=== PATIENT | male | born 1950 | race Caucasian/White ===

== ENCOUNTER 2021-02-12 19:02 | Emergency (ER) | payer OTHER ==
[2021-02-12] MEDS ORDERED: methylPREDNISolone SOD SUCCI 125 MG/2 ML VIAL IV STA (19:21)
[2021-02-12] MEDS ORDERED: SODIUM CHLORIDE 0.9% 1,000 ML IV STA (19:21)
[2021-02-12] MEDS ORDERED: SODIUM CHLORIDE 0.9% 500 ML 500 ML IV STA (19:21)
[2021-02-12] MEDS ORDERED: IPRATROPIUM-ALBUTEROL 3 ML NEB INHALATION STA (19:21)
[2021-02-12 19:58] LABS: Basophils % (A) 1 %; Eosinophils # (A) 0.1 k/uL (0-0.7); Eosinophils % (A) 2 %; HCT 45.1 % (39.0-53.0); HGB 14.9 gm/dL (13.0-17.5); Lymphocytes # (A) 1.2 k/uL (1.0-4.8); Lymphocytes % (A) 28 %; MCH 37.9 pg (25.0-35.0); MCHC 33.1 g/dL (31.0-37.0); MCV 114.6 fL (80.0-100.0); Macrocytosis Marked; Mean Platelet Volume 7.6; Monocytes # (A) 0.2 k/uL (0-1.0); Monocytes % (A) 4 %; Neutrophils # (A) 2.5 k/uL (1.3-7.7); Neutrophils % (A) 61 %; Platelet Count 148 k/uL (150-450); RBC 3.94 m/uL (4.30-5.90); RDW 12.8 % (11.5-15.5); WBC 4.1 k/uL (3.8-10.6)
[2021-02-12 19:59] LABS: ALT 21 U/L (4-49); AST 40 U/L (17-59); African American GFR (CKD) >90 (>60 ml/min/1.73 sqM); Albumin 3.6 g/dL (3.5-5.0); Alkaline Phosphatase 53 U/L (38-126); Anion Gap 12 mmol/L; Blood Urea Nitrogen 7 mg/dL (9-20); Calcium 9.1 mg/dL (8.4-10.2); Carbon Dioxide 17 mmol/L (22-30); Chloride 107 mmol/L (98-107); Glucose 256 mg/dL (74-99); INR 0.9 (<1.2); Non-African American GFR(CKD) >90 (>60 ml/min/1.73 sqM); Partial Thromboplastin Time 24.4 sec (22.0-30.0); Potassium 3.6 mmol/L (3.5-5.1); Prothrombin Time 9.6 sec (9.0-12.0); Sodium 136 mmol/L (137-145); Total Bilirubin 0.2 mg/dL (0.2-1.3); Total Protein 6.2 g/dL (6.3-8.2)
[2021-02-12] MEDS ORDERED: KETOROLAC 15 MG/ML 1 ML VIAL IVP STA ×2 (20:19→20:20)
[2021-02-12] MEDS ORDERED: MORPHINE SULFATE 2 MG/ML SYRINGE IVP STA ×2 (20:19→20:20)
--- NOTE | 2021-02-12 20:31 | XR ---
EXAMINATION TYPE: XR chest 2V DATE OF EXAM: 02/12/2021 COMPARISON: NONE HISTORY: Short of breath TECHNIQUE: 2 views FINDINGS: Heart is normal. Lungs are clear of infiltrate. There is mild flattening of the diaphragm. Thoracic aorta is atheromatous. There are chest leads. Bony thorax is intact. IMPRESSION: There is evidence of COPD. No acute lung disease.
[2021-02-12 20:55] VITALS: RESP 18
--- NOTE | 2021-02-12 22:04 | ED ---
SOB HPI - General Chief Complaint: Shortness of Breath Stated Complaint: SOB Time Seen by Provider: 02/12/21 19:11 Source: patient, family Mode of arrival: wheelchair Limitations: no limitations - History of Present Illness Initial Comments: This 70-year-old male presents with a complaint of shortness breath and cough. He states that he has had this for approximately 5 days. It seemed to start off with what he thinks is a sinusitis. He had some dental work done with 17th extracted. He thinks that he developed a sinusitis from his right upper molar extraction. This has not healed completely. He complains of some right facial pain and nasal congestion. He has been coughing up a yellowish productive type sputum. He denies any fevers or chills. He does have underlying COPD but is not on oxygen. He still does utilize tobacco. He gets most of his care through the [facility] in [place]. He does not utilize a nebulizer at home but his does have a nebulizer that he could use. He denies any chest pain. There is no leg pain or swelling. No history of DVT or PE. - Related Data Home Medications Medication Instructions Recorded Confirmed Aspirin EC [Ecotrin Low Dose] 81 mg PO DAILY 02/12/21 02/12/21 Diltiazem HCl [Diltiazem HCl 24Hr 240 mg PO DAILY 02/12/21 02/12/21 ER (LA)] Melatonin Max 60mg 60 mg PO HS PRN 02/12/21 02/12/21 Prosvent Ultra 1 cap PO DAILY 02/12/21 02/12/21 Terazosin HCl 20 mg PO HS 02/12/21 02/12/21 Venlafaxine HCl ER [Effexor Xr] 75 mg PO DAILY 02/12/21 02/12/21 busPIRone HCl [Buspar] 20 mg PO BID 02/12/21 02/12/21 diphenhydrAMINE [Benadryl] 25 mg PO BID 02/12/21 02/12/21 lisinopriL [Zestril] 5 mg PO DAILY 02/12/21 02/12/21 traZODone HCL 100 mg PO HS PRN 02/12/21 02/12/21 Previous Rx's Medication Instructions Recorded Ipratropium-Albuterol Nebulize 1 neb INHALATION Q4HR #60 neb 02/12/21 [Duoneb 0.5 mg-3 mg/3 ml Soln] Levofloxacin [Levaquin] 750 mg PO DAILY 7 Days #1 tab 02/12/21 predniSONE [Deltasone] 20 mg PO BID #14 tab 02/12/21 Allergies Allergy/AdvReac Type Severity Reaction Status Date / Time No Known Allergies Allergy Verified 02/12/21 20:31 Review of Systems ROS Statement: Those systems with pertinent positive or pertinent negative responses have been documented in the HPI. ROS Other: All systems not noted in ROS Statement are negative. Past Medical History Past Medical History: COPD, Hyperlipidemia, Hypertension Past Surgical History: Orthopedic Surgery Additional Past Surgical History / Comment(s): gastric bypass 2009 Past Psychological History: No Psychological Hx Reported Smoking Status: Current every day smoker Past Alcohol Use History: Daily Past Drug Use History: Marijuana General Exam - General Exam Comments Initial Comments: GENERAL: The patient is well nourished and well hydrated. VITAL SIGNS: Heart rate, blood pressure, respiratory rate reviewed as recorded in nurse's notes. EYES: Pupils are round and reactive. Extraocular movements are intact. No conjunctival / lid redness or swelling. ENT: No external evidence of injury, swelling, or ecchymosis. Airway is patent. Throat is clear. There is tenderness noted over the right maxillary sinus. Oral exam shows healing cavity from dental extraction noted to his right and left upper molars. NECK: Nontender. No swelling or evidence of injury. No subcutaneous emphysema. Trachea is midline. No thyroid mass. HEART: Regular rate and rhythm. Good peripheral pulses. LUNGS/CHEST: Diffuse wheezing noted bilaterally. No ecchymosis, subcutaneous emphysema, or tenderness. ABDOMEN: Abdomen soft without tenderness. No palpable masses or organomegaly. No peritoneal signs. No abdominal wall swelling or ecchymosis. EXTREMITIES: No extremity tenderness. Normal muscle tone and function. No thoracolumbar tenderness. NEUROLOGIC: Sensation is grossly intact. Cranial nerve exam reveals face is symmetrical, tongue is midline, speech is clear. SKIN: No abrasions or ecchymosis is noted. No induration or masses noted. PSYCHIATRIC: Alert and oriented. Appropriate behavior and judgment. Limitations: no limitations Course Vital Signs 02/12/21 02/12/21 02/12/21 19:04 19:45 19:46 Temperature 98.1 F Pulse Rate 96 79 Respiratory 22 18 18 Rate Blood Pressure 109/61 102/63 O2 Sat by Pulse 94 L 96 Oximetry 02/12/21 02/12/21 02/12/21 20:24 20:34 20:50 Temperature Pulse Rate 76 70 73 Respiratory 18 20 18 Rate Blood Pressure 125/71 O2 Sat by Pulse 96 Oximetry Medical Decision Making - Medical Decision Making Patient was seen and examined. All diagnostics were reviewed. The patient receives 2 DuoNeb breathing treatments and voices significant treatment and his symptomatology. He also received Solu-Medrol 125 modems IV and Rocephin 1 g IV. His EKG shows a normal sinus rhythm at a rate of 88. There is no acute ST-T wave changes identified. The [place] intervals 144, QS duration is 78, and the QTC intervals 471. The laboratory comes back showing hyperglycemia with glucose at 256 and a decrease CO2 of 17 consistent with likely dehydration. His coronavirus test is negative and he does relate that he already has been immuniz ed for this as well. Overall, it is felt as though he likely does have a sinusitis. His chest x-ray does not show any evidence of pneumonia but does show signs of COPD. He also likely has a degree of bronchitis and COPD exacerbation. relates that his oxygen was down to 89% at home. It is felt as though he benefit from admission to the hospital. The patient refuses admission. He understands that there is some risk of not being hospitalized but is willing to take this risk. He would like to follow-up at the [facility] in [place] tomorrow instead. He can utilize his 's nebulizer machine this evening. His oxygenation on recheck is approximately 93- 94% on 2 L. It is felt as though he benefit from steroids, breathing treatments, and antibiotics. He is agreeable with this plan. Return parameters are discussed. He does relate that he would return throughout the evening if his symptoms worsen. In addition, he understands that his blood sugar is elevated and that this should be monitored. He apparently ate dinner and had a doughnut shortly prior to arrival and this likely could be causing the hyperglycemia and follow-up with primary care is recommended. - Lab Data Result diagrams: 02/12/21 19:37 02/12/21 19:37 Lab Results 02/12/21 02/12/21 02/12/21 Range/Units 19:37 19:37 19:37 WBC 4.1 (3.8-10.6) k/uL RBC 3.94 L (4.30-5.90) m/uL Hgb 14.9 (13.0-17.5) gm/dL Hct 45.1 (39.0-53.0) % MCV 114.6 H (80.0-100.0) fL MCH 37.9 H (25.0-35.0) pg MCHC 33.1 (31.0-37.0) g/dL RDW 12.8 (11.5-15.5) % Plt Count 148 L (150-450) k/uL MPV 7.6 Neutrophils % 61 % Lymphocytes % 28 % Monocytes % 4 % Eosinophils % 2 % Basophils % 1 % Neutrophils # 2.5 (1.3-7.7) k/uL Lymphocytes # 1.2 (1.0-4.8) k/uL Monocytes # 0.2 (0-1.0) k/uL Eosinophils # 0.1 (0-0.7) k/uL Basophils # 0.0 (0-0.2) k/uL Macrocytosis Marked A PT 9.6 (9.0-12.0) sec INR 0.9 (<1.2) APTT 24.4 (22.0-30.0) sec Sodium 136 L (137-145) mmol/L Potassium 3.6 (3.5-5.1) mmol/L Chloride 107 (98-107) mmol/L Carbon Dioxide 17 L (22-30) mmol/L Anion Gap 12 mmol/L BUN 7 L (9-20) mg/dL Creatinine 0.75 (0.66-1.25) mg/dL Est GFR (CKD-EPI)AfAm >90 (>60 ml/min/1.73 sqM) Est GFR (CKD-EPI)NonAf >90 (>60 ml/min/1.73 sqM) Glucose 256 H (74-99) mg/dL Calcium 9.1 (8.4-10.2) mg/dL Total Bilirubin 0.2 (0.2-1.3) mg/dL AST 40 (17-59) U/L ALT 21 (4-49) U/L Alkaline Phosphatase 53 (38-126) U/L Troponin I (0.000-0.034) ng/mL NT-Pro-B Natriuret Pep pg/mL Total Protein 6.2 L (6.3-8.2) g/dL Albumin 3.6 (3.5-5.0) g/dL Coronavirus (PCR) (Not Detectd) 02/12/21 02/12/21 02/12/21 Range/Units 19:37 19:37 19:37 WBC (3.8-10.6) k/uL RBC (4.30-5.90) m/uL Hgb (13.0-17.5) gm/dL Hct (39.0-53.0) % MCV (80.0-100.0) fL MCH (25.0-35.0) pg MCHC (31.0-37.0) g/dL RDW (11.5-15.5) % Plt Count (150-450) k/uL MPV Neutrophils % % Lymphocytes % % Monocytes % % Eosinophils % % Basophils % % Neutrophils # (1.3-7.7) k/uL Lymphocytes # (1.0-4.8) k/uL Monocytes # (0-1.0) k/uL Eosinophils # (0-0.7) k/uL Basophils # (0-0.2) k/uL Macrocytosis PT (9.0-12.0) sec INR (<1.2) APTT (22.0-30.0) sec Sodium (137-145) mmol/L Potassium (3.5-5.1) mmol/L Chloride (98-107) mmol/L Carbon Dioxide (22-30) mmol/L Anion Gap mmol/L BUN (9-20) mg/dL Creatinine (0.66-1.25) mg/dL Est GFR (CKD-EPI)AfAm (>60 ml/min/1.73 sqM) Est GFR (CKD-EPI)NonAf (>60 ml/min/1.73 sqM) Glucose (74-99) mg/dL Calcium (8.4-10.2) mg/dL Total Bilirubin (0.2-1.3) mg/dL AST (17-59) U/L ALT (4-49) U/L Alkaline Phosphatase (38-126) U/L Troponin I <0.012 (0.000-0.034) ng/mL NT-Pro-B Natriuret Pep 91 pg/mL Total Protein (6.3-8.2) g/dL Albumin (3.5-5.0) g/dL Coronavirus (PCR) Not Detected (Not Detectd) Disposition Clinical Impression: COPD exacerbation, Bronchitis, Sinusitis, Dehydration, Tobacco abuse, Hyperglycemia, Bronchospasm Disposition: HOME SELF-CARE Condition: Fair Instructions (If sedation given, give patient instructions): Acute Bronchitis (ED), Sinusitis (ED), COPD (Chronic Obstructive Pulmonary Disease) (DC), How to Stop Smoking (ED) Additional Instructions: Review also may benefit from utilizing Mucinex DM or similar [id number] medications. Prescriptions: predniSONE [Deltasone] 20 mg PO BID #14 tab Ipratropium-Albuterol Nebulize [Duoneb 0.5 mg-3 mg/3 ml Soln] 1 neb INHALATION Q4HR #60 neb Levofloxacin [Levaquin] 750 mg PO DAILY 7 Days #1 tab Is patient prescribed a controlled substance at d/c from ED?: No Referrals: Nonstaff,Physician [Primary Care Provider] - 1-2 days Time of Disposition: 22:04
[2021-02-12 22:57] VITALS: BP 119/54; PULSE 78; TEMP 98.4
== END 2021-02-12 22:54 | disposition home or self-care (01) ==
LOC: EC 19:02
DX: J44.1 Chronic obstructive pulmonary disease with (acute) exacerbation (principal); J40 Bronchitis, not specified as acute or chronic; J32.9 Chronic sinusitis, unspecified; E86.0 Dehydration; R73.9 Hyperglycemia, unspecified; I10 Essential (primary) hypertension; E78.5 Hyperlipidemia, unspecified; F17.200 Nicotine dependence, unspecified, uncomplicated; F12.90 Cannabis use, unspecified, uncomplicated; Z79.82 Long term (current) use of aspirin; Z79.52 Long term (current) use of systemic steroids; Z79.899 Other long term (current) drug therapy; Z98.84 Bariatric surgery status
CPT/HCPCS: 36415; 94640; 93005; 83880; 80053; 84484; 85025; 85610; 85730; 87040; 87635; 71046; 96365; 96375 ×2; 96361 ×3; 99284; J2930; J0696; J2270

== ENCOUNTER 2024-02-19 13:34 | Emergency (ER) | payer OTHER ==
[2024-02-19 13:46] VITALS: TEMP 97.4
[2024-02-19] MEDS ORDERED: RX INFO: IV CONTRAST WAS GIVEN 1 EACH MISC MISCELLANE PRN (14:03)
[2024-02-19 14:31] LABS: Basophils % (A) 1 %; Eosinophils # (A) 0.2 k/uL (0-0.7); Eosinophils % (A) 3 %; HCT 42.8 % (39.0-53.0); HGB 14.1 gm/dL (13.0-17.5); Lymphocytes # (A) 1.2 k/uL (1.0-4.8); Lymphocytes % (A) 21 %; MCH 31.3 pg (25.0-35.0); MCHC 32.9 g/dL (31.0-37.0); MCV 95.3 fL (80.0-100.0); Mean Platelet Volume 7.8; Monocytes # (A) 0.3 k/uL (0-1.0); Monocytes % (A) 5 %; Neutrophils # (A) 4.1 k/uL (1.3-7.7); Neutrophils % (A) 70 %; Platelet Count 178 k/uL (150-450); RBC 4.49 m/uL (4.30-5.90); RDW 12.7 % (11.5-15.5); WBC 5.9 k/uL (3.8-10.6)
[2024-02-19 14:39] LABS: ALT 14 U/L (4-49); African American GFR (CKD) >90 (>60 ml/min/1.73 sqM); Anion Gap 5 mmol/L; Blood Urea Nitrogen 14 mg/dL (9-20); Calcium 8.6 mg/dL (8.4-10.2); Carbon Dioxide 23 mmol/L (22-30); Chloride 106 mmol/L (98-107); Glucose 73 mg/dL (74-99); Non-African American GFR(CKD) >90 (>60 ml/min/1.73 sqM); Sodium 134 mmol/L (137-145); Total Bilirubin 0.6 mg/dL (0.2-1.3)
[2024-02-19 14:54] LABS: Potassium 4.8 mmol/L (3.5-5.1)
--- NOTE | 2024-02-19 14:54 | ED ---
General Adult HPI - General Chief complaint: Abdominal Pain Stated complaint: Needs CT/Broken Ribs Time Seen by Provider: 02/19/24 14:52 Source: patient Mode of arrival: ambulatory Limitations: no limitations - History of Present Illness Initial comments: Patient is a 73-year-old male past medical history of prior gastric bypass, presenting today for right rib pain. Patient states on Thursday he was camping when he tried to step out of his tent and tripped, falling on his right side onto the hard ground. Over the last 4 days he has had worsening right-sided rib pain and pain with inspiration. Patient states the pain is the worst when he tries to lay down so he has been sleeping in a recliner for only about 2 hours at a time. He has been taking Tylenol at home without relief, last dose was yesterday. Cannot take NSAIDs due to prior gastric bypass. Patient denies fever, cough, hemoptysis, chest pain, back pain, neck pain, vomiting. Endorses alternating diarrhea and constipation though states this is chronic since his abdominal surgery. Patient does feel like the right side of his abdomen is "harder" than the left. No hematochezia or melena. Patient does not take blood thinners. He was seen in urgent care prior to arrival and was told he had 4 broken ribs and fluid on his lung so was sent to the emergency department for chest CT to evaluate for hemothorax versus pleural effusion. Patient denies other injury, did not hit his head or neck, states that his right shoulder and right arm feel fine and he has no pain there no hip pain, no bruising. - Related Data Home Medications Medication Instructions Recorded Confirmed Aspirin EC [Ecotrin Low Dose] 81 mg PO DAILY 02/12/21 02/12/21 Melatonin Max 60mg 60 mg PO HS PRN 02/12/21 02/12/21 Prosvent Ultra 1 cap PO DAILY 02/12/21 02/12/21 Terazosin HCl 20 mg PO HS 02/12/21 02/12/21 Venlafaxine HCl ER [Effexor Xr] 75 mg PO DAILY 02/12/21 02/12/21 busPIRone HCl [Buspar] 20 mg PO BID 02/12/21 02/12/21 dilTIAZem HCL [Diltiazem HCl 24Hr 240 mg PO DAILY 02/12/21 02/12/21 ER ([place])] diphenhydrAMINE [Benadryl] 25 mg PO BID 02/12/21 02/12/21 lisinopriL [Zestril] 5 mg PO DAILY 02/12/21 02/12/21 traZODone HCL 100 mg PO HS PRN 02/12/21 02/12/21 Previous Rx's Medication Instructions Recorded Ipratropium-Albuterol Nebulize 1 neb INHALATION Q4HR #60 neb 02/12/21 [Duoneb 0.5 mg-3 mg/3 ml Soln] levoFLOXacin [Levaquin] 750 mg PO DAILY 7 Days #1 tab 02/12/21 predniSONE [Deltasone] 20 mg PO BID #14 tab 02/12/21 Acetaminophen-Codeine 300-30mg 1 tab PO Q6H PRN 3 Days #12 tablet 02/19/24 [Tylenol w/codeine #3] Allergies Allergy/AdvReac Type Severity Reaction Status Date / Time No Known Allergies Allergy Verified 02/19/24 13:46 Review of Systems ROS Statement: Those systems with pertinent positive or pertinent negative responses have been documented in the HPI. ROS Other: All systems not noted in ROS Statement are negative. Past Medical History Past Medical History: COPD, Hyperlipidemia, Hypertension Past Surgical History: Orthopedic Surgery Additional Past Surgical History / Comment(s): gastric bypass 2009 Past Psychological History: No Psychological Hx Reported Smoking Status: Current every day smoker Past Alcohol Use History: Daily Past Drug Use History: Marijuana General Exam - General Exam Comments Initial Comments: PE: CONSTITUTIONAL: no apparent distress, well appearing, sitting upright, exam li mited as patient is too painful to lie on the stretcher SKIN: warm, dry, no jaundice, hives or petechiae, no bruising abrasions or lacerations EYES: pupils are equally round, extraocular movements intact without nystagmus, clear conjunctiva, non-icteric sclera HENT: normocephalic, atraumatic, moist mucus membranes, oropharynx clear without exudates NECK: Nontender and supple with no nuchal rigidity, no lymphadenopathy, full range of motion PULMONARY: Rhonchi and rales in the lower right and midlung field, lung sounds present throughout the entire right lung field, scant wheezes left midlung fi eld, no accessory muscle use, no stridor, decreased excursion secondary to pain with inspiration CARDIOVASCULAR: regular rate, rhythm, normal S1 and S2. No appreciated murmurs. Strong radial pulses with intact distal perfusion GASTROINTESTINAL: soft, minimal right upper quadrant palpation, mildly di stended, no palpable masses, no rebound or guarding, negative McBurney's point, no hepatosplenomegaly LYMPHATICS: no edema in lower extremities MUSCULOSKELETAL: Extremities are nontender to palpation and have no gross deformity, no edema, redness, or swelling NEUROLOGIC: _a/o x 3, GCS 15, normal mentation and speech. Moves all extremities x 4 without motor or sensory deficit PSYCHIATRIC: _normal mood and affect, thought process is clear and linear Limitations: no limitations Course Vital Signs 02/19/24 02/19/24 02/19/24 13:42 14:51 17:40 Temperature 97.4 F L Pulse Rate 70 71 56 L Respiratory 18 16 14 Rate Blood Pressure 119/74 126/82 142/85 O2 Sat by Pulse 95 94 L Oximetry 02/19/24 18:39 Temperature Pulse Rate 62 Respiratory 14 Rate Blood Pressure 150/83 O2 Sat by Pulse 97 Oximetry - Reevaluation(s) Reevaluation #1: CT chest abdomen pelvis reviewed, read by radiologist as moderate emphysematous changes, small right pleural effusion minimal bibasilar atelectasis, 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 Rate 64 bpm. Normal intervals. Normal axis. No ST elevations or depressions. Compared to EKG performed on 02/12/2021, no si gnificant changes from prior. No arrhythmia Medical Decision Making - Medical Decision Making Was pt. sent in by a medical professional or institution (, PA, LAST TRIMMER, urgent care, hospital, or [facility]...) When possible be specific @ -Patient sent in by local urgent care Did you speak to anyone other than the patient for history (EMS, parent, family, police, friend...)? What history was obtained from this source @ -Patient's assisted in providing history Did you review nursing and triage notes (agree or disagree)? Why? @ -[I reviewed and agree with nursing and triage notes] Triage note reviewed, patient chief complaint for broken ribs, reports fluid on lung center from urgent care for CT, fell last Thursday and reports shortness of breath signs on arrival showed temp 97.4 oral, pulse 70 bpm, heart respiratory rate 18, blood pressure 118/74 pulse ox 95% on room air Were old charts reviewed (outside hosp., previous admission, EMS record, old EKG, old radiological studies, urgent care reports/EKG's, [facility] records)? Report findings @ -[No old charts were reviewed]-no old charts to review Differential Diagnosis (chest pain, altered mental status, abdominal pain women, abdominal pain men, vaginal bleeding, weakness, fever, dyspnea, syncope, headache, dizziness, GI bleed, back pain, seizure, CVA, palpatations, mental health, musculoskeletal)? @ -Differential diagnosis remains broad at this point however top considerations include rib fractures, hemopneumothorax, pleural effusion, pneumothorax, pneumonia, pulmonary contusion EKG interpreted by me (3pts min.). @ -[As above] X-rays interpreted by me (1pt min.). @ -[None done] CT interpreted by me (1pt min.). @ -Please see hospital course U/S interpreted by me (1pt. min.). @ -[None done] What testing was considered but not performed or refused? (CT, X-rays, U/S, labs)? Why? @ -[None] What meds were considered but not given or refused? Why? @ -Considered increasing pain control to Dilaudid however pain is controlled with morphine Did you discuss the management of the patient with other professionals (professionals i.e. , PA, LAST TRIMMER, lab, RT, psych nurse, child welfare social worker, director of community life, teacher, chief data officer, comp field case manager)? Give summary @ -[No] Was smoking cessation discussed for >3mins.? @ -Yes Was critical care preformed (if so, how long)? @ -[No] Were there social determinants of health that impacted care today? How? (Homelessness, low income, unemployed, alcoholism, drug addiction, transportation, low edu. Level, literacy, decrease access to med. care, [facility], rehab)? @ -[No] Was there de-escalation of care discussed even if they declined (Discuss DNR or withdrawal of care, Hospice)? DNR status @ -[No] What co-morbidities impacted this encounter? (DM, HTN, Smoking, COPD, CAD, Cancer, CVA, ARF, Chemo, Hep., AIDS, mental health diagnosis, sleep apnea, morbid obesity)? @ -History of COPD, hypertension Was patient admitted / discharged? Hospital course, mention meds given and route, prescriptions, significant lab abnormalities, going to OR and other pertinent info. @ -[hospital course] Patient is a 73-year-old gentleman, past medical history, current cigarette smoker, hypertension, prior gastric bypass presented today for right rib pain after trip and fall approximately 1 week ago, noted to have 4 rib fractures and "fluid on his lung" at local urgent care so sent to the emergency department. Patient O2 sat wnl on room air. No tachycardia or tachypnea. Plan for CT chest abdomen pelvis to assess for the above diagnoses listed differential and given mild right upper quadrant pain to palpation, to ensure no traumatic intra-abdominal injury, troponin, EKG to ensure no signs of blunt cardiac injury, CBC, CMP already ordered, will obtain urinalysis. Morphine, Zofran and lidocaine patch to be given for pain control. Of note blood glucose on arrival 73, will be keeping patient n.p.o. until CT results, D5 LR bolus ordered. On reassessment patient's pain is controlled Labs reviewed. Grossly within normal limits. Abnormal values not concerning for acute pathology related to presenting complaint. Updated patient to CT findings including large renal cysts and emphasized the importance of close follow-up with PCP and nephrology regarding these findings and possible need for MRI . Requested RN provide patient w/ an incentive spirometer. Instructed patient to use this 4 times daily to assist with prevention of the development of pneumonia given history of COPD and current rib fractures. Patient was discharged with p ain control, prescription for Tylenol 3. Additionally discussed use of lidocaine patches for further pain. Patient comfortable and agreeable with discharge at this point. In my medical judgment there is currently no evidence of an immediate life- threatening or surgical condition. Discharge is therefore indicated at this time. [Discharge treatment instructions, follow up instructions, and appropriate emergency department return precautions were discussed with the patient and/or medical decision maker. Patient and/or medical decision maker expressed understanding of and agreed with the treatment plan, follow up instructions, and emergency department return precaution. All patient's and/or medical decision maker's questions were answered.] [The patient was advised that a small risk still exists that a serious condition could develop and was therefore instructed to return to the ED for any changes in symptoms, persistent symptoms, inability to obtain proper follow-up or for any further concerns. Patient received verbal and written instructions for this condition.] Drug Therapy requiring intensive monitoring for toxicity (Heparin, Nitro, Insulin, Cardizem)? @ -[No] Were any procedures done? @ -[No] Diagnosis/symptom? @ -Rib fractures, pleural effusion, fall, renal cysts Acute, or Chronic, or Acute on Chronic? @ -Acute Uncomplicated (without systemic symptoms) or Complicated (systemic symptoms)? @ -Complicated Side effects of treatment? @ -[No] Exacerbation, Progression, or Severe Exacerbation? @ -[No] - Lab Data Result diagrams: 02/19/24 14:20 02/19/24 14:20 Lab Results 02/19/24 02/19/24 02/19/24 Range/Units 14:20 14:20 14:20 WBC 5.9 (3.8-10.6) k/uL RBC 4.49 (4.30-5.90) m/uL Hgb 14.1 (13.0-17.5) gm/dL Hct 42.8 (39.0-53.0) % MCV 95.3 (80.0-100.0) fL MCH 31.3 (25.0-35.0) pg MCHC 32.9 (31.0-37.0) g/dL RDW 12.7 (11.5-15.5) % Plt Count 178 (150-450) k/uL MPV 7.8 Neutrophils % 70 % Lymphocytes % 21 % Monocytes % 5 % Eosinophils % 3 % Basophils % 1 % Neutrophils # 4.1 (1.3-7.7) k/uL Lymphocytes # 1.2 (1.0-4.8) k/uL Monocytes # 0.3 (0-1.0) k/uL Eosinophils # 0.2 (0-0.7) k/uL Basophils # 0.0 (0-0.2) k/uL APTT 25.6 (22.0-30.0) sec Sodium 134 L (137-145) mmol/L Potassium 4.8 (3.5-5.1) mmol/L Chloride 106 (98-107) mmol/L Carbon Dioxide 23 (22-30) mmol/L Anion Gap 5 mmol/L BUN 14 (9-20) mg/dL Creatinine 0.71 (0.66-1.25) mg/dL Est GFR (CKD-EPI)AfAm >90 (>60 ml/min/1.73 sqM) Est GFR (CKD-EPI)NonAf >90 (>60 ml/min/1.73 sqM) Glucose 73 L (74-99) mg/dL POC Glucose (mg/dL) (70-110) mg/dL POC Glu Pattern Hand ID Calcium 8.6 (8.4-10.2) mg/dL Total Bilirubin 0.6 (0.2-1.3) mg/dL AST 25 (17-59) U/L ALT 14 (4-49) U/L Alkaline Phosphatase 41 (38-126) U/L Troponin I (0.000-0.034) ng/mL NT-Pro-B Natriuret Pep pg/mL Total Protein 6.4 (6.3-8.2) g/dL Albumin 3.7 (3.5-5.0) g/dL Urine Color Urine Appearance (Clear) Urine pH (5.0-8.0) Ur Specific [place] (1.001-1.035) Urine Protein (Negative) Urine Glucose (UA) (Negative) Urine Ketones (Negative) Urine Blood (Negative) Urine Nitrite (Negative) Urine Bilirubin (Negative) Urine Urobilinogen (<2.0) mg/dL Ur Leukocyte Esterase (Negative) 02/19/24 02/19/24 02/19/24 Range/Units 14:20 16:34 17:35 WBC (3.8-10.6) k/uL RBC (4.30-5.90) m/uL Hgb (13.0-17.5) gm/dL Hct (39.0-53.0) % MCV (80.0-100.0) fL MCH (25.0-35.0) pg MCHC (31.0-37.0) g/dL RDW (11.5-15.5) % Plt Count (150-450) k/uL MPV Neutrophils % % Lymphocytes % % Monocytes % % Eosinophils % % Basophils % % Neutrophils # (1.3-7.7) k/uL Lymphocytes # (1.0-4.8) k/uL Monocytes # (0-1.0) k/uL Eosinophils # (0-0.7) k/uL Basophils # (0-0.2) k/uL APTT (22.0-30.0) sec Sodium (137-145) mmol/L Potassium (3.5-5.1) mmol/L Chloride (98-107) mmol/L Carbon Dioxide (22-30) mmol/L Anion Gap mmol/L BUN (9-20) mg/dL Creatinine (0.66-1.25) mg/dL Est GFR (CKD-EPI)AfAm (>60 ml/min/1.73 sqM) Est GFR (CKD-EPI)NonAf (>60 ml/min/1.73 sqM) Glucose (74-99) mg/dL POC Glucose (mg/dL) (70-110) mg/dL POC Glu Pattern Hand ID Calcium (8.4-10.2) mg/dL Total Bilirubin (0.2-1.3) mg/dL AST (17-59) U/L ALT (4-49) U/L Alkaline Phosphatase (38-126) U/L Troponin I <0.012 (0.000-0.034) ng/mL NT-Pro-B Natriuret Pep 349 pg/mL Total Protein (6.3-8.2) g/dL Albumin (3.5-5.0) g/dL Urine Color Yellow Urine Appearance Clear (Clear) Urine pH 6.0 (5.0-8.0) Ur Specific [place] 1.020 (1.001-1.035) Urine Protein Negative (Negative) Urine Glucose (UA) Negative (Negative) Urine Ketones Negative (Negative) Urine Blood Negative (Negative) Urine Nitrite Negative (Negative) Urine Bilirubin Negative (Negative) Urine Urobilinogen <2.0 (<2.0) mg/dL Ur Leukocyte Esterase Negative (Negative) 02/19/24 Range/Units 18:43 WBC (3.8-10.6) k/uL RBC (4.30-5.90) m/uL Hgb (13.0-17.5) gm/dL Hct (39.0-53.0) % MCV (80.0-100.0) fL MCH (25.0-35.0) pg MCHC (31.0-37.0) g/dL RDW (11.5-15.5) % Plt Count (150-450) k/uL MPV Neutrophils % % Lymphocytes % % Monocytes % % Eosinophils % % Basophils % % Neutrophils # (1.3-7.7) k/uL Lymphocytes # (1.0-4.8) k/uL Monocytes # (0-1.0) k/uL Eosinophils # (0-0.7) k/uL Basophils # (0-0.2) k/uL APTT (22.0-30.0) sec Sodium (137-145) mmol/L Potassium (3.5-5.1) mmol/L Chloride (98-107) mmol/L Carbon Dioxide (22-30) mmol/L Anion Gap mmol/L BUN (9-20) mg/dL Creatinine (0.66-1.25) mg/dL Est GFR (CKD-EPI)AfAm (>60 ml/min/1.73 sqM) Est GFR (CKD-EPI)NonAf (>60 ml/min/1.73 sqM) Glucose (74-99) mg/dL POC Glucose (mg/dL) 167 H (70-110) mg/dL POC Glu Pattern Hand ID Ellen Lunsofrd Calcium (8.4-10.2) mg/dL Total Bilirubin (0.2-1.3) mg/dL AST (17-59) U/L ALT (4-49) U/L Alkaline Phosphatase (38-126) U/L Troponin I (0.000-0.034) ng/mL NT-Pro-B Natriuret Pep pg/mL Total Protein (6.3-8.2) g/dL Albumin (3.5-5.0) g/dL Urine Color Urine Appearance (Clear) Urine pH (5.0-8.0) Ur Specific [place] (1.001-1.035) Urine Protein (Negative) Urine Glucose (UA) (Negative) Urine Ketones (Negative) Urine Blood (Negative) Urine Nitrite (Negative) Urine Bilirubin (Negative) Urine Urobilinogen (<2.0) mg/dL Ur Leukocyte Esterase (Negative) Disposition Clinical Impression: Rib fractures, Fall, Renal cyst, Pleural effusion Disposition: HOME SELF-CARE Condition: Good Instructions (If sedation given, give patient instructions): Rib Fracture (ED) Additional Instructions: Every disease is a spectrum and a small chance still exists that a serious condition could develop, for this reason, please monitor yourself closely for new, changing or worsening symptoms, symptoms that do not improve within the next 72 hours, fevers, coughing up thick sputum or blood, lightheadedness, dizziness or episodes of passing out, chest pain, swelling in your legs, uncontrolled pain/pain that you cannot control with home medications, swelling in your legs, difficulty in breathing, fever, inability to tolerate/keep down fluids or your medications, inability to follow up with outpatient providers as instructed and should you experience these symptoms or should you have any further concerns for your wellbeing please return to the ED or call [address] [facility]. Please follow-up with Dr. Woody regarding renal cyst You can also use lidocaine patches for topical pain. You can purchase 4% patches over the counter at most drug stores. These can be helpful for pain from your muscles or bones. PLEASE call your primary care physician as soon as possible to arrange / discuss plan for followup appointment. Appointment in the next 1-3 days is strongly e ncouraged if possible. PLEASE let us know here before you leave if there is anything further we can do to be of any assistance. Take care and feel Better! Prescriptions: Acetaminophen-Codeine 300-30mg [Tylenol w/codeine #3] 1 tab PO Q6H PRN 3 Days #12 tablet PRN Reason: Pain Is patient prescribed a controlled substance at d/c from ED?: Yes When asked, does pt state using other controlled substances?: No If prescribed controlled substance>3 days was MAPS reviewed?: Yes If opioid is for acute pain is fill amount 7 days or less?: Yes If Rx opioid, was Start Talking consent form obtained?: Yes Referrals: [facility] [Primary Care Provider] - 1-2 days Susie Woody MD [STAFF PHYSICIAN] - 1-2 days Time of Disposition: 18:34
[2024-02-19 14:55] LABS: AST 25 U/L (17-59); Alkaline Phosphatase 41 U/L (38-126); Total Protein 6.4 g/dL (6.3-8.2)
[2024-02-19 14:56] LABS: Albumin 3.7 g/dL (3.5-5.0)
[2024-02-19] MEDS: MORPHINE SULFATE 4 MG/ML SYRINGE IVP STA (15:28)
[2024-02-19] MEDS: LIDOCAINE 4% PATCH TOPICAL ONE (15:29)
[2024-02-19] MEDS: ONDANSETRON 4 MG/2 ML VIAL IVP STA (15:29)
[2024-02-19] MEDS: DEXTROSE 5%-LACTATED RINGERS 1,000 ML IV SCH (16:19)
--- NOTE | 2024-02-19 16:24 | CT ---
EXAMINATION TYPE: CT ChestAbdPelvis w con DATE OF EXAM: 02/19/2024 COMPARISON: None HISTORY: known 4 broken ribs. SOB, fall x [address] DLP: 1072.5 mGycm Automated exposure control for dose reduction was used. CONTRAST: CT scan of the chest, abdomen and pelvis is performed without Oral Contrast and with IV Contrast, pat ient injected with 100 cc mL of Isovue 300. FINDINGS: CT chest: There are moderate emphysematous changes. There is no suspicious lung mass or nodule. There is a small right pleural effusion and minimal bibasilar atelectasis. There is no pleural effusion, pleural thickening or pneumothorax. The great vessels and chest are normal there is no mediastinal, hilar or axillary adenopathy. No focal osseous lesions are seen. CT abdomen and pelvis: Gallbladder is normal without distention, pericholecystic fluid, wall thickening or gallstone. There is no biliary ductal dilatation. There is no focal mass or organomegaly involving the liver, pancreas, spleen or adrenal glands.. There is no right solid renal mass or hydronephrosis. There is a great white mass of large kidneys with septations and calcified septations involving the u pper pole of the left kidney likely indicating a form of multicystic dysplastic kidney. MRI might be useful for further evaluation. There is no retroperitoneal adenopathy or hemorrhage in the caliber of the abdominal aorta is normal. The bowel loops are normal in caliber and there is no dilatation or obstruction. No inflammatory jon ges identified in the bowel wall and mesentery. There is no free intracranial air or fluid. There is no pelvic mass or adenopathy. There is no free fluid within the pelvis. No focal osseous lesions are seen. Soft tissue the abdomen and pelvis are normal. IMPRESSION: 1. Chest CT: Moderate emphysematous changes, small right pleural effusion and minimal bibasilar atele ctasis. 2. 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 MRI the kidneys is recommended for further evaluation.
[2024-02-19 16:59] LABS: Appearance,Urine Clear (Clear); Bilirubin,Urine Negative (Negative); Blood,Urine Negative (Negative); Color,Urine Yellow; Glucose,Urine (UA) Negative (Negative); Ketones,Urine Negative (Negative); Leukocyte Esterase,Urine Negative (Negative); Nitrite,Urine Negative (Negative); Protein,Urine Negative (Negative); Urobilinogen,Urine <2.0 mg/dL (<2.0)
[2024-02-19 17:42] VITALS: RESP 14
[2024-02-19 18:40] VITALS: BP 150/83; PULSE 62
[2024-02-19 18:44] LABS: Glucose,Whole Blood 167 mg/dL (70-110)
== END 2024-02-19 18:53 | disposition home or self-care (01) ==
LOC: EC 13:34
DX: S22.39XA Fracture of one rib, unspecified side, initial encounter for closed fracture (principal); J90 Pleural effusion, not elsewhere classified; N28.1 Cyst of kidney, acquired; F17.200 Nicotine dependence, unspecified, uncomplicated; W01.0XXA Fall on same level from slipping, tripping and stumbling without subsequent striking against object, initial encounter
CPT/HCPCS: 36415; 93005; 83880; 80053; 84484; 85025; 85730; 81003; 71260; 74177; 99285; 96374; 96375; 96361; J2270; J2405; Q9967